=== PATIENT | female | born 1960 | race Caucasian/White ===

== ENCOUNTER 2024-10-17 15:57 | Emergency (ER) | payer OTHER ==
[~2024-10-17] VITALS: Ht 160 cm
[2024-10-17] MEDS ORDERED: Ondansetron Hydrochloride 4 MG/2 ML VIAL IV ONE (16:50)
[2024-10-17] MEDS ORDERED: diazePAM 5 MG TAB PO ONE (16:50)
[2024-10-17] MEDS ORDERED: Dexamethasone Sodium Phospha 20 MG/5 ML VIAL IV ONE (16:50)
[2024-10-17 17:53] LABS: BASO # 0.1 10*3/uL (0.0-0.1); BASO % 0.4 % (0.0-1.0); EOS # 0.0 10*3/uL (0.0-0.4); EOS % 0.2 % (1.0-4.0); MEAN CELL VOLUME 89.7 fl (81.0-99.0); MEAN CORPUSCULAR HGB 31.4 pg (27.0-31.0); MEAN PLATELET VOLUME 8.7 fl (9.6-12.3); MONO # 0.7 10*3/uL (0.1-1.0); MONO % 5.9 % (3.0-9.0); NEUT # 8.9 10*3/uL (2.3-7.9); NEUT % 73.3 % (47.0-73.0); NUCLEATED RED BLOOD CELL 0.0 % (0.0-0.0); NUCLEATED RED BLOOD CELL 0.0 10*3/uL (0.0-0.0); PLATELET COUNT AUTOMATED 268 10*3/uL (130-400); RED CELL DISTRI WIDTH 12.6 % (0-14.5)
[2024-10-17 18:16] LABS: SGPT/ALT 20 U/L (5-49)
[2024-10-17 18:19] LABS: BUN < 5 mg/dl (9-23)
[2024-10-17] MEDS ORDERED: SODIUM CHLORIDE 0.9% 1,000 ML IV ONE (18:20)
[2024-10-17] MEDS ORDERED: Metoclopramide Hydrochloride 10 MG/2 ML VIAL IV ONE (19:05)
[2024-10-17] MEDS ORDERED: diphenhydrAMINE hydrochloride 50 MG/ML VIAL IV ONE (19:05)
[2024-10-17] MEDS ORDERED: METHOCARBAMOL750 M1 PO (19:08)
[2024-10-17] MEDS ORDERED: Ondansetron4 MG PO (19:08)
[2024-10-17] MEDS ORDERED: PREDNISONE20 M1 PO (19:08)
== END 2024-10-17 19:15 | disposition home or self-care (01) ==
LOC: ED 15:57
PROVIDERS: Emergency Medicine
DX: G43.909 Migraine, unspecified, not intractable, without status migrainosus (principal); M54.12 Radiculopathy, cervical region; M54.16 Radiculopathy, lumbar region; G89.29 Other chronic pain; R11.2 Nausea with vomiting, unspecified; H53.149 Visual discomfort, unspecified; R20.0 Anesthesia of skin; R20.2 Paresthesia of skin

== ENCOUNTER 2024-11-11 12:43 | Emergency (ER) | payer MEDICARE ==
[~2024-11-11] VITALS: Ht 160 cm; Wt 54.4 kg
[~2024-11-11 12:43] MED LIST: METHOCARBAMOL750 M1 PO; Ondansetron4 MG PO; PREDNISONE20 M1 PO
[2024-11-11] MEDS ORDERED: Dexamethasone Sodium Phospha 20 MG/5 ML VIAL IM ONE (13:20)
[2024-11-11] MEDS ORDERED: Acetaminophen/Oxycodone 5 MG/325 MG TABLET PO ONE ×2 (13:20→15:15)
[2024-11-11] MEDS ORDERED: PREDNISONE50 MG PO (15:10)
== END 2024-11-11 15:29 | disposition home or self-care (01) ==
LOC: ED 12:43
DX: M54.12 Radiculopathy, cervical region (principal); M25.512 Pain in left shoulder; M79.602 Pain in left arm; Z79.899 Other long term (current) drug therapy